=== PATIENT | male | born 1950 | race Caucasian/White ===

== ENCOUNTER 2020-11-10 09:05 | Inpatient (IN) | payer OTHER, SELFPAY ==
[2020-11-10] VITALS (8 sets, daily range): BP systolic 87–170; BP diastolic 50–80; PULSE 62–88; RESP 17–18; TEMP 36.4–36.6; O2SAT 96–100; BMI 26.4
--- NOTE | ~2020-11-10 | CT_ITS ---
EXAMINATION: CT HEAD WITHOUT CONTRAST CLINICAL INFORMATION: Dizziness with weakness and facial droop with slurred speech COMPARISON: None TECHNIQUE: Contiguous axial imaging was performed from the skull base to vertex without intravenous administration of contrast. This CT examination was performed using dose optimization techniques as appropriate, variously including the following: *Automated exposure control *Adjustment of mA and/or kV according to patient size (this includes techniques or standardized protocols for targeted exams where dose is matched to indication/reason for exam; i.e. extremities or head) *Use of iterative reconstruction technique DLP: 727 mGy-cm FINDINGS: There is no evidence of acute intracranial hemorrhage. No abnormal mass effect or midline shift is seen. There is a region of diminished density about the watershed region between the posterior right parietal lobe and occipital lobe with some loss of owens-white matter interface. In the same location peripherally there is an extra-axial CSF collection which may represent arachnoid cyst or encephalomalacia with adjacent enlarged CSF space from previous infarct. The ventricles are normal in size. The osseous structures and soft tissues are normal. The mastoid air cells and visualized portions of the paranasal sinuses are well aerated. There is some mild mucosal thickening seen within the left maxillary sinus and a few ethmoid air cells. CT/CT head/brain wo con IMPRESSION: No intracranial hemorrhage or significant mass effect. Right parietal/occipital infarct which is age indeterminate.
--- NOTE | ~2020-11-10 | XR_ITS ---
EXAMINATION: XR CHEST CLINICAL INFORMATION: Shortness of breath, dizziness, weakness COMPARISON: None TECHNIQUE: Portable upright AP x2 views of the chest was obtained. FINDINGS: There is no pneumothorax, airspace consolidation, or effusion. No hyperinflation. The heart is normal in size. The vascularity is normal. The hilar and mediastinal contours are normal. There are degenerative changes thoracic spine and shoulders. XR/XR chest 1V IMPRESSION: No acute intrathoracic disease. Lungs clear.
--- NOTE | ~2020-11-10 | MR_ITS ---
EXAMINATION: MRI BRAIN WITHOUT CONTRAST. CLINICAL INFORMATION: Left upper extremity weakness with facial droop. COMPARISON: CT brain 11/10/2020. TECHNIQUE: Multiplanar and multi sequential images of brain were obtained without contrast. FINDINGS: There is no abnormal restricted diffusion seen to suspect any acute ischemic changes on DWI sequence. There is hyperintensity seen in the right posterolateral right occipital lobe, old infarction. There is scattered T2 weighted signal changes in the deep white matter both frontal and parietal lobes without mass effect or edema. There is no flow void signal either on gradient echo suspect any acute or old hemorrhage. There is normal flow void signal visualized in major cerebral vasculature. A dominant left vertebral artery is noted. Visualized bilateral paranasal sinuses and mastoid air cells are well-aerated except for minimal mucoperiosteal thickening right maxillary sinus. MR/MR head/brain wo con IMPRESSION: No acute intracranial bleed or infarction. Small right posterior occipital lobe old infarction with encephalomalacia. Findings are concordant with earlier CT brain exam from today.
--- NOTE | ~2020-11-10 | CT_ITS ---
EXAMINATION: CT CERVICAL SPINE WITHOUT CONTRAST CLINICAL INFORMATION: Status post fall. COMPARISON: None TECHNIQUE: 3 mm thin axial and reformatted 2 minutes thin sagittal and coronal images of cervical spine were obtained. This CT examination was performed using dose optimization techniques as appropriate, variously including the following: *Automated exposure control *Adjustment of mA and/or kV according to patient size (this includes techniques or standardized protocols for targeted exams where dose is matched to indication/reason for exam; i.e. extremities or head) *Use of iterative reconstruction technique DLP: 374. mGy-cm FINDINGS: On sagittal reconstructed images there is maintained cervical lordosis. There is grade 1 retrolisthesis C4-C5. There is loss of C4-C5, C5-C6 and C6-C7 disc heights. There is moderate ventral spondylosis C3-C4, C4-C5, C5-C6 and C6-C7 disc levels. There is left C2-C3, bilateral C5 3-4, 6 moderate C4-C5 and mild C5-C6 facet joint arthropathy. No visible acute fracture, dislocation or lytic process seen. The prevertebral soft tissues are normal. The airways widely patent. The thyroid lobes are symmetrical and normal. Visualized bilateral parotid and submandibular glands are symmetrical. The lung apices are clear. CT/CT cervical spine wo con IMPRESSION: Degenerative disc changes as described above. No visible acute fracture, dislocation or subluxation seen. There is retrograde listhesis C4 over C5
--- NOTE | ~2020-11-10 | XR_ITS ---
EXAMINATION: XR LUMBOSACRAL SPINE CLINICAL INFORMATION: Fall, low back pain COMPARISON: Chest radiographs 11/10/2020 TECHNIQUE: Three views of the lumbosacral spine. FINDINGS: There may be transitional vertebrae upper sacrum. There is no lumbar vertebral compression, spondylolisthesis, or visible fracture. No destructive process. There is no focal disc narrowing or erosive changes. There is multilevel vertebral body spurring with partially bridging right lateral osteophytes upper lumbar spine and multilevel anterior bridging osteophytes. There is facet degeneration greatest at L3-S1. The SI joints and visualized sacrum are unremarkable. Short metallic wire fragment overlies left hemipelvis. Bowel gas unremarkable. XR/XR lumbar spine 2-3V IMPRESSION: 1. Multiple bulky vertebral body osteophytes and facet degeneration. 2. No visible fracture, vertebral compression, or spondylolisthesis.
--- NOTE | 2020-11-10 09:56 | ECG_ITS ---
Test Reason : WEAKNESS Blood Pressure : / mmHG Vent. Rate : 066 BPM Atrial Rate : 068 BPM P-R Int : 000 ms QRS Dur : 154 ms QT Int : 500 ms P-R-T Axes : 000 026 -59 degrees QTc Int : 524 ms Atrial fibrillation Right bundle branch block T wave abnormality, consider inferolateral ischemia Abnormal ECG No previous ECGs available Referred By: Viji Crane Electronically Signed By:JEAN LYON MD
[2020-11-10 10:30] LABS: MANUAL DIFF FLAG NO
[2020-11-10 10:31] LABS: Basophils Percent Auto 0.5 % (0-2); Eosinophils Absolute Auto 0.1 X10*3/uL (0.0-0.4); Eosinophils Percent Auto 1.5 % (0-4); Hematocrit 38.8 % (42-52); Imm Gran Abs Auto 0.02 X10*3/uL (0.00-0.03); Imm Gran Pct Auto 0.3 % (0.0-0.4); Lymphocytes Absolute Auto 0.6 X10*3/uL (1.2-4.9); Lymphocytes Percent Auto 9.7 % (20-40); Mean Corpuscular HGB Conc 33.5 g/dl (31.0-36.0); Mean Corpuscular Hemoglobin 28.7 pg (27.0-33.0); Mean Corpuscular Volume 85.7 fL (80-98); Mean Platelet Volume 11.4 fL (9.4-12.4); Monocytes Absolute Auto 0.3 X10*3/uL (0.1-1.2); Monocytes Percent Auto 4.8 % (2-11); Neutrophils Absolute Auto 5.1 X10*3/uL (2.0-8.3); Neutrophils Percent Auto 83.2 % (45-73); Platelet Count 215 X10*3/uL (160-400); Red Blood Count 4.53 X10*6/uL (4.60-5.80); Red Cell Distribution Width 16.4 % (11.0-16.0); White Blood Count 6.1 X10*3/uL (4.8-10.8)
[2020-11-10 10:40] LABS: INTERNATIONAL NORM RATIO 1.1 (0.9-1.1); Prothrombin Time 12.6 SEC (9.9-13.0)
[2020-11-10 11:08] LABS: Alanine Aminotransferase 37 U/L (0-40); Albumin Level 4.3 g/dL (3.5-5.0); Alkaline Phosphatase 51 U/L (39-117); Aspartate Amino Transferase 45 U/L (5-37); Bilirubin Total 0.8 mg/dL (0.0-1.0); Blood Urea Nitrogen 45 mg/dL (9-16); Calcium 9.5 mg/dL (8.4-10.2); Carbon Dioxide 31 mmol/L (22-29); Chloride 101 mmol/L (96-108); Creatinine Clr Calc Pharmacy 32.5; Estimated Glomerular Filt Rate 28; Glucose Random 121 mg/dL (60-115); Magnesium 2.4 mg/dL (1.6-2.6); Sodium 146 mmol/L (135-145); Total Protein 7.5 g/dL (6.5-8.0)
[2020-11-10 11:10] LABS: B Type Natriuretic Peptide 358 pg/mL (<100)
[2020-11-10 11:13] LABS: Anion Gap 17 (12-20); Potassium 2.9 mmol/L (3.3-5.1)
--- NOTE | 2020-11-10 11:39 | PC.NURSE ---
Pt resting quietly. slightly muffled speech. skin pwd. a fib on monitor. friend at bedside. confirming that speech remains altered. new dentures have been attempted recently then removed which confuses friend as to when speech really changed. pt awaits MRI.
--- NOTE | 2020-11-10 11:55 | PC.NURSE ---
slight right sided facial droop noted. only visable around mouth when smiling pt taking po water easily.
[2020-11-10 12:02] LABS: Lactic Acid 0.9 mmol/L (0.5-2.0)
[2020-11-10 12:32] LABS: Influenza A PCR NEGATIVE (Negative); Influenza B PCR NEGATIVE (Negative); Resp Syncy Virus RNA Qual PCR NEGATIVE (Negative); SARS COV2 PCR INHOUSE NEGATIVE (Negative)
[2020-11-10] MEDS: Potassium Chloride/H20 10 MEQ/100 ML PIGGYBACK 100 MEQ IV ×2 (13:33→16:35)
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
--- NOTE | 2020-11-10 15:17 | PHA.MEDREC ---
Pharmacy Consult ? Medication Reconciliation Pharmacy has completed the medication reconciliation.
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
[2020-11-10] MEDS: 0.9 % Sodium Chloride 1,000 ML 999 ML IVCONT ×2 (16:34→18:38)
--- NOTE | 2020-11-10 16:36 | PC.NURSE ---
Pt has been alert and oriented x 3. pleasant. speech may be very slightly improved but hard to tell. afib on monitor continues. skin pwd. awaits room on floor.
[2020-11-10] MEDS: Heparin Sodium,Porcine 5,000 UNIT/ML VIAL 5000 UNIT SUBCUT ×2 (17:35→22:29)
--- NOTE | 2020-11-10 17:57 | PC.NURSE ---
call to 3rd floor for report.
--- NOTE | 2020-11-10 18:27 | PC.NURSE ---
rn to rn with
[2020-11-10] MEDS: 0.9 % Sodium Chloride Flush 3 ML SYRINGE IVFLUSH (18:38)
[2020-11-10] MEDS: Lactated Ringers 1,000 ML 125 ML IVCONT (18:39)
--- NOTE | 2020-11-10 18:40 | PC.NURSE ---
no change in assessment. right droop remains present. speech clearing a fib on monitor. nad. good bed mobility
[2020-11-10 18:52] LABS: Glucose Urine UA NEG (NEG); Leukocyte Esterase Urine NEG (NEG); Nitrite Urine NEG (NEG); Specific Gravity - Urine >= 1.030 (1.005-1.025); Urine Blood NEG (NEG); Urine Ketones NEG (NEG); Urine Protein TRACE MG/DL (NEG-TRACE)
[2020-11-10 18:55] LABS: Appearance Urine CLEAR; Color Urine DARK YELLOW
[2020-11-10 19:09] LABS: Amphetamine Screen Urine Not Detected (Not Detect); Barbiturates, Urine Not Detected (Not Detect); Benzodiazepines Screen Urine POSITIVE (Not Detect); Cannabinoid Screen Urine POSITIVE (Not Detect); Cocaine Screen Urine Not Detected (Not Detect); Opiate Screen Urine POSITIVE (Not Detect); Phencyclidine Screen Urine Not Detected (Not Detect)
[2020-11-10] MEDS: carvediloL 25 MG TABLET PO (22:22)
[2020-11-11] VITALS (9 sets, daily range): BP systolic 130–183; BP diastolic 50–99; PULSE 57–71; RESP 16–18; TEMP 36–36.9; O2SAT 96–100
[2020-11-11] MEDS: Lactated Ringers 1,000 ML 125 ML IVCONT (02:24)
[2020-11-11] MEDS: Omeprazole 20 MG CAPSULE.DR PO (06:42)
[2020-11-11 07:01] LABS: Hematocrit 33.4 % (42-52); Hemoglobin 11.1 g/dl (14.0-18.0); Mean Corpuscular HGB Conc 33.2 g/dl (31.0-36.0); Mean Corpuscular Hemoglobin 28.5 pg (27.0-33.0); Mean Corpuscular Volume 85.6 fL (80-98); Mean Platelet Volume 11.2 fL (9.4-12.4); Platelet Count 174 X10*3/uL (160-400); Red Cell Distribution Width 16.5 % (11.0-16.0); White Blood Count 4.3 X10*3/uL (4.8-10.8)
[2020-11-11 07:35] LABS: Anion Gap 10 (12-20); Blood Urea Nitrogen 49 mg/dL (9-16); Calcium 8.9 mg/dL (8.4-10.2); Carbon Dioxide 33 mmol/L (22-29); Chloride 106 mmol/L (96-108); Estimated Glomerular Filt Rate 42; Glucose Fasting 116 mg/dL (60-99); Potassium 2.9 mmol/L (3.3-5.1); Sodium 146 mmol/L (135-145)
[2020-11-11] MEDS: Heparin Sodium,Porcine 5,000 UNIT/ML VIAL 5000 UNIT SUBCUT ×3 (08:17→23:32)
[2020-11-11] MEDS: Sodium Chloride 0.45 % 1,000 ML 100 ML IVCONT ×2 (08:19→17:01)
[2020-11-11] MEDS: carvediloL 25 MG TABLET PO ×2 (08:20→21:26)
[2020-11-11] MEDS: Aspirin Enteric Coated 81 MG TABLET.DR PO (08:20)
[2020-11-11] MEDS: Fenofibrate 160 MG TABLET PO (08:20)
[2020-11-11] MEDS: Potassium Chloride ER 20 MEQ TAB.ER.PRT 40 MEQ PO (08:20)
[2020-11-11] MEDS: VerapamiL HCL SR 240 MG TABLET.ER PO (08:23)
--- NOTE | 2020-11-11 09:16 | P.PNIM_ITS ---
Subjective Subjective Date of Service: 11/11/20 Interval History: feeling better Eyes Eyes: Reports no additional eye complaints Physical Exam Vital Signs: Vital Signs: Last Vital Signs Temp 96.8 F 11/11/20 08:00 Pulse 63 11/11/20 08:00 Resp 18 11/11/20 08:00 BP 140/94 H 11/11/20 08:00 Pulse Ox 97 11/11/20 08:00 Body Mass Index 26.4 General: AO X 3, no acute distress Resp: CTA bilateral CVS: S1,S2,RRR GI: soft, non tender, non distended Neuro: motor grossly intact Psych: appropriate affect Objective Data Current Medications Generic Name Dose Route Start Last Admin Trade Name Freq PRN Reason Stop Dose Admin Acetaminophen 650 mg 11/10/20 15:28 Acetaminophen 325 Mg Tablet PO Q6H PRN Pain, Mild (Pain Scale 1-3) Aspirin 81 mg 11/11/20 09:00 11/11/20 08:20 Aspirin Enteric Coated 81 Mg Tablet. PO 81 mg DAILY ELIJAH Administration Carvedilol 25 mg 11/10/20 21:00 11/11/20 08:20 Carvedilol 25 Mg Tablet PO 25 mg BID ELIJAH Administration Protocol Fenofibrate 160 mg 11/11/20 09:00 11/11/20 08:20 Fenofibrate 160 Mg Tablet PO 160 mg DAILY ELIJAH Administration Heparin Sodium (Porcine) 5,000 unit 11/10/20 15:30 11/11/20 08:17 Heparin Sodium,Porcine 5,000 Unit/Ml Vial SUBCUT 5,000 unit Q8H ELIJAH Administration Sodium Chloride 1,000 mls @ 100 mls/hr 11/11/20 07:45 11/11/20 08:19 IVCONT 100 mls/hr .Q10H ELIJAH Administration Omeprazole 20 mg 11/11/20 06:30 11/11/20 06:42 Omeprazole 20 Mg Capsule. PO 20 mg DAILY@0630 [facility] Administration Pharmacy Consult 1 each 11/10/20 14:45 Consult Rx Perform Med Rec MISCELLANE ONCE PRN Consult order Verapamil HCl 240 mg 11/11/20 09:00 11/11/20 08:23 Verapamil Hcl Sr 240 Mg Tablet.Er PO 240 mg DAILY ELIJAH Administration Protocol Labs CBC & Chem 7: 11/11/20 06:08 11/11/20 06:08 Labs: Laboratory Results - last 24 hr 11/10/20 11/10/20 11/10/20 10:23 10:23 10:23 MCV 85.7 MCH 28.7 MCHC 33.5 RDW 16.4 H Plt Count 215 MPV 11.4 Immature Gran % (Auto) 0.3 Neut % (Auto) 83.2 H Lymph % (Auto) 9.7 L [place] % (Auto) 4.8 Eos % (Auto) 1.5 Baso % (Auto) 0.5 Lymph # (Auto) 0.6 L [place] # (Auto) 0.3 Eos # (Auto) 0.1 Baso # (Auto) 0.0 Abs Immat Gran (auto) 0.02 Absolute Neuts (auto) 5.1 Absolute Nucleated RBC 0.000 Nucleated RBC % (auto) 0.0 PT 12.6 INR 1.1 Anion Gap 17 Estim Creat Clear Calc 32.5 Estimated GFR 28 Random Glucose 121 H Fasting Glucose Lactic Acid Calcium 9.5 Magnesium 2.4 Total Bilirubin 0.8 AST 45 H ALT 37 Alkaline Phosphatase 51 Total Creatine Kinase 271 H Troponin I High Sens B-Natriuretic Peptide Total Protein 7.5 Albumin 4.3 Urine Color Urine Appearance Urine pH Ur Specific [place] Urine Protein Urine Glucose (UA) Urine Ketones Urine Blood Urine Nitrite Ur Leukocyte Esterase Urine Opiates Screen Ur Barbiturates Screen Ur Phencyclidine Scrn Ur Amphetamines Screen U Benzodiazepines Scrn Urine Cocaine Screen U Marijuana (THC) Screen Coronavirus (PCR) Influenza Type A (PCR) Influenza Type B (PCR) RSV RNA Qual (PCR) 11/10/20 11/10/20 11/10/20 10:23 10:43 11:32 MCV MCH MCHC RDW Plt Count MPV Immature Gran % (Auto) Neut % (Auto) Lymph % (Auto) [place] % (Auto) Eos % (Auto) Baso % (Auto) Lymph # (Auto) [place] # (Auto) Eos # (Auto) Baso # (Auto) Abs Immat Gran (auto) Absolute Neuts (auto) Absolute Nucleated RBC Nucleated RBC % (auto) PT INR Anion Gap Estim Creat Clear Calc Estimated GFR Random Glucose Fasting Glucose Lactic Acid 0.9 Calcium Magnesium Total Bilirubin AST ALT Alkaline Phosphatase Total Creatine Kinase Troponin I High Sens 64.0 H* B-Natriuretic Peptide 358 H Total Protein Albumin Urine Color Urine Appearance Urine pH Ur Specific [place] Urine Protein Urine Glucose (UA) Urine Ketones Urine Blood Urine Nitrite Ur Leukocyte Esterase Urine Opiates Screen Ur Barbiturates Screen Ur Phencyclidine Scrn Ur Amphetamines Screen U Benzodiazepines Scrn Urine Cocaine Screen U Marijuana (THC) Screen Coronavirus (PCR) NEGATIVE Influenza Type A (PCR) NEGATIVE Influenza Type B (PCR) NEGATIVE RSV RNA Qual (PCR) NEGATIVE 11/10/20 11/10/20 11/10/20 14:35 18:37 18:37 MCV MCH MCHC RDW Plt Count MPV Immature Gran % (Auto) Neut % (Auto) Lymph % (Auto) [place] % (Auto) Eos % (Auto) Baso % (Auto) Lymph # (Auto) [place] # (Auto) Eos # (Auto) Baso # (Auto) Abs Immat Gran (auto) Absolute Neuts (auto) Absolute Nucleated RBC Nucleated RBC % (auto) PT INR Anion Gap Estim Creat Clear Calc Estimated GFR Random Glucose Fasting Glucose Lactic Acid Calcium Magnesium Total Bilirubin AST ALT Alkaline Phosphatase Total Creatine Kinase Troponin I High Sens 61.0 H* B-Natriuretic Peptide Total Protein Albumin Urine Color DARK YELLOW Urine Appearance CLEAR Urine pH 6.0 Ur Specific [place] >= 1.030 H Urine Protein TRACE Urine Glucose (UA) NEG Urine Ketones NEG Urine Blood NEG Urine Nitrite NEG Ur Leukocyte Esterase NEG Urine Opiates Screen POSITIVE H Ur Barbiturates Screen Not Detected Ur Phencyclidine Scrn Not Detected Ur Amphetamines Screen Not Detected U Benzodiazepines Scrn POSITIVE H Urine Cocaine Screen Not Detected U Marijuana (THC) Screen POSITIVE H Coronavirus (PCR) Influenza Type A (PCR) Influenza Type B (PCR) RSV RNA Qual (PCR) 11/11/20 11/11/20 06:08 06:08 MCV 85.6 MCH 28.5 MCHC 33.2 RDW 16.5 H Plt Count 174 MPV 11.2 Immature Gran % (Auto) Neut % (Auto) Lymph % (Auto) [place] % (Auto) Eos % (Auto) Baso % (Auto) Lymph # (Auto) [place] # (Auto) Eos # (Auto) Baso # (Auto) Abs Immat Gran (auto) Absolute Neuts (auto) Absolute Nucleated RBC 0.000 Nucleated RBC % (auto) 0.0 PT INR Anion Gap 10 L Estim Creat Clear Calc 46.0 Estimated GFR 42 Random Glucose Fasting Glucose 116 H Lactic Acid Calcium 8.9 D Magnesium Total Bilirubin AST ALT Alkaline Phosphatase Total Creatine Kinase 282 H Troponin I High Sens B-Natriuretic Peptide Total Protein Albumin Urine Color Urine Appearance Urine pH Ur Specific [place] Urine Protein Urine Glucose (UA) Urine Ketones Urine Blood Urine Nitrite Ur Leukocyte Esterase Urine Opiates Screen Ur Barbiturates Screen Ur Phencyclidine Scrn Ur Amphetamines Screen U Benzodiazepines Scrn Urine Cocaine Screen U Marijuana (THC) Screen Coronavirus (PCR) Influenza Type A (PCR) Influenza Type B (PCR) RSV RNA Qual (PCR) Assessment and Plan (1) ISAI (acute kidney injury): Status: Acute Assessment and Plan: ?70M presented with falls, found to have isai, hypernatremia falls complicated by ISAI and hypernatremia MRI showed old stroke but no acute infarct, patient denies any drugs for last 20 years, but tested positive for cocaine in 2019, and now for opiates, benzos, and marijuana, none of which have been prescribed. likely falls due to old stroke and intoxication cpk low, given history ISAI possibly due to previous rhabdo some improvement in creatinine from 2.32 to 1.64 sodium still 146, will change fluids to 1/2NS holding lisinipril PT eval, will likely need rehabl hypokalemia replace and monitor chornic afib coreg, verapamil on asa reports stopping warfarin due to hematuria, but does not appear to be real contraindication, ?restart anticoagulation htn holding lisinopril, triameteren/hctz dvt prophlyaxis - heparin sq Quality Stroke Does the patient have a stroke diagnosis?: No VTE Prior VTE?: No VTE Risk Level:: Medical - moderate - high VTE Device Contraindication: Treatment Not Indicated VTE Drug Contraindication: N/A - Med Ordered
--- NOTE | 2020-11-11 11:50 | MHC.CM.PN ---
PATIENT LIVES WIT HIS [facility] OTHER. HE HAS BEEN INDEPENDENT WITH AMBULATION, BUT LATELY DOES USE A CANE HIS PCP IS AT [facility] ON [facility] IN [place] [phone]; HOWEVER, HE HAS NOT YET SEEN HIS NEW PROVIDER AND HAS AN APPOINTMENT ON 12/03/20 @ 0003. UPDATE MADE IN [employer]. P.T. IS RECOMMENDING OUTPATIENT REHAB SERVICES FOR [place]. PATIENT IS AWARE HE WILL NEED TO MAKE THIS APPOINTMENT ON HIS OWN. PATIENT IN AGREEMENT.
[2020-11-12] MEDS: Sodium Chloride 0.45 % 1,000 ML 100 ML IVCONT ×2 (00:42→08:11)
[2020-11-12 04:00] VITALS: BP 149/86; PULSE 69; RESP 16; TEMP 36.6; O2SAT 99
[2020-11-12] MEDS: Omeprazole 20 MG CAPSULE.DR PO (05:34)
[2020-11-12 07:25] LABS: Hematocrit 35.5 % (42-52); Hemoglobin 11.8 g/dl (14.0-18.0); Mean Corpuscular HGB Conc 33.2 g/dl (31.0-36.0); Mean Corpuscular Hemoglobin 28.2 pg (27.0-33.0); Mean Corpuscular Volume 84.7 fL (80-98); Mean Platelet Volume 11.4 fL (9.4-12.4); Platelet Count 218 X10*3/uL (160-400); Red Blood Count 4.19 X10*6/uL (4.60-5.80); White Blood Count 5.7 X10*3/uL (4.8-10.8)
[2020-11-12 07:37] VITALS: PULSE 69; RESP 18; TEMP 36.3; O2SAT 100
[2020-11-12 07:52] LABS: Anion Gap 12 (12-20); Blood Urea Nitrogen 36 mg/dL (9-16); Calcium 9.2 mg/dL (8.4-10.2); Carbon Dioxide 31 mmol/L (22-29); Chloride 103 mmol/L (96-108); Creatinine Clr Calc Pharmacy 58.9; Estimated Glomerular Filt Rate 55; Glucose Fasting 111 mg/dL (60-99); Magnesium 1.9 mg/dL (1.6-2.6); Sodium 143 mmol/L (135-145)
[2020-11-12 08:00] VITALS: BP 190/90
[2020-11-12] MEDS: Fenofibrate 160 MG TABLET PO (08:07)
[2020-11-12] MEDS: Aspirin Enteric Coated 81 MG TABLET.DR PO (08:07)
[2020-11-12] MEDS: VerapamiL HCL SR 240 MG TABLET.ER PO (08:07)
[2020-11-12] MEDS: carvediloL 25 MG TABLET PO (08:07)
[2020-11-12] MEDS: Heparin Sodium,Porcine 5,000 UNIT/ML VIAL 5000 UNIT SUBCUT (08:07)
[2020-11-12] MEDS: Potassium Chloride Packet 20 MEQ PACKET 40 MEQ PO ×2 (08:36→12:17)
[2020-11-12 10:53] VITALS: BP 190/90
--- NOTE | 2020-11-12 11:34 | MHC.CM.PN ---
PATIENT IS DISCHARGED HOME - SELF CARE. [facility] OTHER CAN PROVIDE TRANSPORT.
--- NOTE | 2020-11-12 11:37 | PM.DS ---
DS: Providers Provider Date of Service: 11/18/20 Date of admission: 11/10/20 15:29 Primary care physician: Unknown Physician DS: Diagnosis Discharge Diagnosis (1) ISAI (acute kidney injury): Status: Acute (2) Multiple falls: Status: Acute (3) General weakness: Status: Acute (4) Acute hypokalemia: Status: Acute DS: Medications Discharge Medications Home Medications: Home Medications Medication Instructions Recorded Confirmed aspirin 81 mg tablet,delayed 81 mg PO DAILY 11/10/20 11/10/20 release carvedilol 25 mg tablet 1 tab PO BID 11/10/20 11/10/20 fenofibrate 160 mg tablet 1 tab PO DAILY 11/10/20 11/10/20 omeprazole 20 mg capsule,delayed 1 cap PO DAILY 11/10/20 11/10/20 release triamterene 37.5 1 tab PO DAILY 11/10/20 11/10/20 mg-hydrochlorothiazide 25 mg tablet verapamil 240 mg 24 hr 1 cap PO DAILY 11/10/20 11/10/20 capsule,extended release Previous Rx's Medication Instructions Recorded lisinopril 20 mg tablet 20 mg PO DAILY #30 tab 11/12/20 DS: Summary Hospital Course Hospital Course: Admission note HPI 70M presented with multiple falls. patient states that for about 1-2 weeks ptp he has been falling. unable to walk straight, veering to right, legs giving out. has fallen multiple times, no significant trauma but a couple times ended up on the floor for porlonged periods. finally decided to come to ED. denies fever, chest pain, sob. in ED found to have ISAI, hypernatremia. Hospital course Patient was admitted to the hospital after sustaining falls at home. Tested positive on tox screening for opiates, THC and benzos which he denies using. MRI for the brain was negative for any acute findings. He was able to participate with physical therapist with no reported deficit. Noted to have acute kidney injury with creatinine of 2.6 at presentation. Improved with usage of IV fluid and holding nephrotoxic medications to 1.2 at the day of discharge. blood pressure was noted to be elevated so lisinopril dose was increased to 20 mg daily. To be discharged home on a higher dose of lisinopril and to follow-up with his PCP with readings of his blood pressure. Time Spent with Patient Time attestation: Total time spent providing and/or coordinating discharge services: Discharge coordination time: Greater than 30 minutes Quality: Stroke Does the patient have a stroke diagnosis?: No Physical Exam Vital Signs: Vital Signs: Last Vital Signs Temp 97.3 F 11/12/20 07:37 Pulse 69 11/12/20 07:37 Resp 18 11/12/20 07:37 BP 190/90 H 11/12/20 10:53 Pulse Ox 100 11/12/20 07:37 Body Mass Index 26.4 Const: Other: Constitutional : Alert, oriented, not in distress Neck : Normal inspection, Supple Cardiovascular : RRR, S1 S2, no lower extremity edema Respiratory : Good bilateral air entry, no crackles, wheezes or rhonchi Gastrointestinal: soft, lax, Normal bowel sounds, Non tender Skin : Warm, Dry Neurological : Alert & oriented x3, No focal deficit DS: Data Data Completed and Pending Labs on day of discharge: Laboratory Results - last 24 hr 11/12/20 11/12/20 07:09 07:09 WBC 5.7 RBC 4.19 L Hgb 11.8 L Hct 35.5 L MCV 84.7 MCH 28.2 MCHC 33.2 RDW 16.0 Plt Count 218 D MPV 11.4 Absolute Nucleated RBC 0.000 Nucleated RBC % (auto) 0.0 Sodium 143 Potassium 3.0 L Chloride 103 Carbon Dioxide 31 H Anion Gap 12 BUN 36 H Creatinine 1.28 Estim Creat Clear Calc 58.9 Estimated GFR 55 Fasting Glucose 111 H Calcium 9.2 Magnesium 1.9 Preliminary micro results at discharge 11/10/20 10:43 Blood Culture - Preliminary Blood - Venous No growth after 24 hours. Discharge Plan Discharge Patient Disposition: Home Health Service Discharge Diagnosis: Acute kidney injury Recurrent falls Referrals: Physician,Unknown [Physician] - 1 Week Discharge Medications: New lisinopril 20 mg tablet 20 mg PO DAILY Qty: 30 RF: 0 Continued carvedilol 25 mg tablet 1 tab PO BID RF: 0 aspirin 81 mg Tablet,Delayed Release (Dr/Ec) 81 mg PO DAILY RF: 0 triamterene-hydrochlorothiazid 37.5-25 mg tablet 1 tab PO DAILY RF: 0 omeprazole 20 mg capsule,delayed release(DR/EC) 1 cap PO DAILY RF: 0 verapamil 240 mg capsule,ext rel. pellets 24 hr 1 cap PO DAILY RF: 0 fenofibrate 160 mg tablet 1 tab PO DAILY RF: 0 Discontinued lisinopril 10 mg tablet 1 tab PO DAILY RF: 0 Discharge Orders: Discharge Order (Routine); Ordered 11/12/20 Ordered By: Cheyenne Jackson Diet: advance to usual diet Activity on Discharge: As tolerated Stand Alone Forms: Patient Portal Discharge page Other Ambulatory Orders: Basic Metabolic Panel (Routine) Timeframe: 1 Week Facility: [facility] - Location: Laboratory Ordered By: Cheyenne Jackson Care Plan Goals: Read below Health Concerns: Read below Plan of Treatment: You were admitted to the hospital for evaluation of falls. Found to have acute kidney injury which was treated with good response as your kidneys improved back to baseline. MRI of the brain was done showing negative evidence for any new strokes. Assessment: Lisinopril Dose was increased to 20 mg daily to repeat blood test next week You need to monitor your blood pressure at home and to follow-up 1 week readings with your PCP. Discharge Date/Time: 11/12/20 13:32
[2020-11-12 11:50] VITALS: BP 150/81; PULSE 57; RESP 18; TEMP 36.3; O2SAT 99
[2020-11-12] MEDS: lisinopriL 20 MG TABLET PO (12:17)
[2020-11-12] MEDS: hydrALAZINE HCl 25 MG TABLET PO (12:17)
== END 2020-11-12 13:32 | disposition home health service (06) | DRG 469 ==
LOC: HO.ED 14:44 → HO.EDOVER 15:37 → HO.S3 17:32
PROVIDERS: Physician Assistant Medical; Admitting Provider Internal Medicine; Emergency Provider Emergency Medicine; PCP Internal Medicine; Visit Provider Student in an Organized Health Care Education/Training Program
DX: N17.9 Acute kidney failure, unspecified (principal); I48.20 Chronic atrial fibrillation, unspecified; E87.6 Hypokalemia; I10 Essential (primary) hypertension; R29.6 Repeated falls; Z91.81 History of falling; Z20.822 Contact with and (suspected) exposure to COVID-19; Z79.82 Long term (current) use of aspirin; Z87.891 Personal history of nicotine dependence; Z79.899 Other long term (current) drug therapy
CPT/HCPCS: 0241U; 36415; 70450; 70551; 71045; 72100; 72125; 80048; 80053; 80307; 81003; 82550; 83605; 83735; 83880; 84484; 85025; 85027; 85610; 87040; 87147; 87205; 93005; 96365; 96366; 97110; 97116; 97161; 99218; 99285

== ENCOUNTER 2020-11-19 07:52 | Outpatient (REF) | payer OTHER, SELFPAY ==
[2020-11-19 10:04] LABS: Anion Gap 13 (12-20); Blood Urea Nitrogen 33 mg/dL (9-16); Calcium 9.2 mg/dL (8.4-10.2); Carbon Dioxide 29 mmol/L (22-29); Chloride 106 mmol/L (96-108); Estimated Glomerular Filt Rate 52; Glucose Random 110 mg/dL (60-115); Potassium 3.4 mmol/L (3.3-5.1); Sodium 145 mmol/L (135-145)
== END 2020-11-19 07:53 | disposition home or self-care (01) ==
LOC: HO.LAB 07:52
PROVIDERS: PCP Internal Medicine; Visit Provider Student in an Organized Health Care Education/Training Program
DX: N17.9 Acute kidney failure, unspecified (principal)
CPT/HCPCS: 36415; 80048